=== PATIENT | male | born 1990 | race Two or more races ===

== ENCOUNTER 2017-03-31 17:46 | Emergency (ER) | payer MEDICAID ==
[~2017-03-31] VITALS: Ht 177.8 cm; Wt 104.3 kg
[2017-03-31 17:48] VITALS: BP 117/73
== END 2017-03-31 19:15 | disposition home or self-care (01) ==
LOC: ER 17:57
DX: M54.5 Low back pain (principal); M25.512 Pain in left shoulder; Z90.89 Acquired absence of other organs; Z88.6 Allergy status to analgesic agent; V49.69XA Unspecified car occupant injured in collision with other motor vehicles in traffic accident, initial encounter; Y93.89 Activity, other specified; Y92.413 State road as the place of occurrence of the external cause; Y99.8 Other external cause status
CPT/HCPCS: 73080-TC; 73130-TC; A4606; Z7610

== ENCOUNTER 2022-12-13 10:32 | Emergency (ER) | payer MEDICAID ==
[~2022-12-13] VITALS: Ht 177.8 cm; Wt 104.3 kg
[2022-12-13 10:37] VITALS: BP 139/78; TEMP 98.1; O2SAT 100
[2022-12-13] MEDS ORDERED: ACETAMINOPHEN ES 500 MG TABLET ONE (10:59)
[2022-12-13] MEDS ORDERED: ACETAMINOPHEN ES 500 MG TABLET PO ONE (11:00)
== END 2022-12-13 12:00 | disposition home or self-care (01) ==
LOC: ER 10:32
DX: M79.672 Pain in left foot (principal); Z98.890 Other specified postprocedural states; Z88.1 Allergy status to other antibiotic agents
CPT/HCPCS: 73630-TC